=== PATIENT | female | born 1995 | race Caucasian/White ===

== ENCOUNTER 2023-09-25 08:00 | Outpatient (CLI) | payer OTHER ==
--- NOTE | 2023-09-25 19:56 | XRAY Report ---
PROCEDURE: Wrist 4 View RT INDICATIONS: RIGHT WRIST PAIN TECHNIQUE: 4 views of the wrist were acquired. COMPARISON: Right wrist MRI 08/10/2023 FINDINGS: Bones: No acute fractures or dislocations. No suspicious bony lesions. Small ossification again s een adjacent the hamate hook. Soft tissues: No suspicious soft tissue calcifications or masses. IMPRESSION: No acute osseous abnormality. Small ossification at the hamate hook may be related to prior trauma or congenital variation. Reviewed by: Otilio Galvin MD on 09/25/2023 7:55 PM PST Approved by: Otilio Galvin MD on 09/25/2023 7:55 PM PST Station ID: [id number]
== END 2023-09-25 23:59 | disposition home or self-care (01) ==
LOC: DI.WOS 08:00
PROVIDERS: ATTEND Physician Assistant Surgical
DX: M25.531 Pain in right wrist (principal)